=== PATIENT | female | born 2000 | race American Indian/Alaskan Native ===

== ENCOUNTER 2025-02-22 10:09 | Outpatient (AMB) | payer OTHER, SELFPAY ==
--- NOTE | 2025-02-22 10:12 | MHC.PC.OV ---
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 Allergies No Known Allergies Allergy (Verified 02/22/25 10:25) Medication List - Last Reconciled 02/22/25 by CARLEE Marquez No Known Home Meds Tobacco use date assessed: 02/22/25 Dental Screening Dental Screen Date: 02/22/25 Did you have a dental visit in the last 12 months?: Yes Did you have a dental problem in the last 6 months where you did not have access to dental care?: No Was dental information given to patient?: Patient has dentist HPI HPI Comments History of Present Illness Details 24 y/o F with dysmenorrhea, urinary incont, family hx DM s/p eye lid surgery R d/t stye Social: [employer]- works in [employer] Fhx: Mom alive, Dad unsure; 1/2 brother alive and well; Unknown paternal/maternal grandparent hx; Maternal uncle w/ DM. Health Maintenance Tdap admin today 02/22/25 Pap has never had one, referred today Specialists None History of Present Illness - The patient is a 24-year-old female presenting with the need to establish primary care & for CPE - Reports inconsistent menorrhagia, lasting up to 12 days, for years; improved however cont. has never had pap. - Longstanding urinary urgency with incont, not linked to specific beverages. - Denies chronic childhood conditions such as asthma or gastrointestinal issues. - Limited family health history known, with a maternal uncle having diabetes. - Has never undergone a Pap smear or cervical cancer screening. - has no sx. Requested STD testing Review of Systems - General: Denies chronic condition management needs - EENT: Reports prior eyelid stye, now resolved after surgery - Genitourinary: Reports urinary urgency, occasional incontinence - Gynecological: Reports menorrhagia; denies previous Pap smear - Gastrointestinal: Denies current symptoms - Family: Denial of known familial cardiac or cancer histories; maternal uncle with diabetes Physical Exam General: Well developed, well nourished, in no acute distress. Appears stated age. Head: Normocephalic, atraumatic. Eyes: Pupils are equal, round and reactive to light and accommodation. Conjunctivae are clear. Vision grossly normal. Ears: Cerumen impaction R cleared; TM intact and clear bilat Nose: Patent, without discharge. Neck: Supple, no adenopathy or thyromegaly. No pain or tenderness noted. Breast: Edu on SBE. Referral to APPLICATION TECHNICIAN for clinical breast exam. Lungs: Clear to auscultation bilaterally. No rales, rhonchi or wheeze noted. Good air flow in all overton. Heart: Regular rate and rhythm. No murmurs, click, rubs or gallops are noted. Abdomen: Bowel sounds present in all quadrants. The abdomen is soft, nontender, with no masses or organomegaly noted. No hernias are noted. : Deferred. Reviewed recommendations for routine BRIDGE ENGINEER. Referral to APPLICATION TECHNICIAN for heavy periods and Pap smear. Pulses: Peripheral pulses are equal and palpable bilaterally. Extremities: No clubbing, cyanosis nor edema is noted. Neurologic: Gait and station normal. Cranial Nerves 2-12 intact. Motor strength grossly symmetrical and intact. No sensory loss. Balance normal. Skin: No rashes, ulcers, or lesions noted. Turgor is good. Skin color is good. Hair and nails are without abnormalities. Psych: Normal eye contact, affect and mood appropriate, and normal interactions. Patient is alert and appropriate to context. Results Pending Discussion Notes I discussed with the patient the necessity of establishing care and conducting important routine health screenings. I recommended scheduling a cervical cancer screening with an APPLICATION TECHNICIAN due to the patient's age and the national guidelines. The risks and importance of a regular Pap smear in preventative health were outlined. Furthermore, although her vaccine history is unknown, I advised considering Tdap vaccination. We discussed the presence of urinary urgency since childhood and potential referrals to urology if concerned enough to explore possible treatments. To ensure comprehensive health care, I reviewed laboratory test options for STD screening and general blood work, including thyroid evaluation, anemia, and cholesterol given her variegated menstrual periods and family history of diabetes. I reiterated the importance of utilizing the patient portal for communication, lab result access, and appointments. Patient was given time to ask questions. All questions were answered to their satisfaction. Assessment and Plan 1. Establishment of Primary Care - Establish regular care coordination. 2. Menorrhagia/ Pap smear - Refer to APPLICATION TECHNICIAN and screen for anemia. 3. Urinary Urgency with incont. - urological referral 4. Screening and Preventative Health - Schedule Pap smear and STD screenings. - Tdap vaccination today - Conduct screening labs 5. Family History of Diabetes - Emphasize regular monitoring. 6. Gage lassiter, R cleared today w lavage Patient Instructions - Schedule an appointment with APPLICATION TECHNICIAN for Pap smear and gynecological health screening. - Tdap vaccine today - Follow up with recommended lab tests including STD screenings and cholesterol. - Use the patient portal for result reviews and communication. - Monitor menstrual flow and report any significant changes. - Urology referral for incont. - RTO 1 year CPE sooner as needed. Health Maintenance - Recommendations given for cervical cancer screening via Pap smear - Discussion regarding updating tetanus shot (Tdap); patient undecided - Advised to screen for sexually transmitted diseases: gonorrhea, chlamydia, and syphilis - Advised blood work, including anemia evaluation related to menorrhagia Consent Patient was informed and verbally consented to the use of an ambient scribe for clinic note documentation during this visit. An additional 30 minutes was spent addressing the problem(s) noted at [facility] visit. This includes time spent before the visit reviewing the chart, time spent during the visit, and time spent after the visit on documentation reviewing laboratory results, diagnostic imaging, medications, performing a medically necessary evaluation, counseling on diagnoses, care coordination, ordering appropriate tests, ordering appropriate medications, review of tests performed by other providers, reporting test results with the patient, communication with other healthcare providers. [facility] Medical History (Updated 02/22/25 @ 10:47 by AL Marquez-SONYA) No pertinent family history No pertinent past medical history Surgical History (Updated 02/22/25 @ 10:17 by AL Marquez-SONYA) H/O eye surgery Social History (Updated 02/22/25 @ 10:14 by Saul Huynh MA) Household Members: None Both parents involved: No Caregiver staying overnight: No Housing: Apartment Are you a primary home health care physician to a significant other at home: No Do you presently have visiting nurse or other home services: No 75 years or older and lives alone: No Alcohol intake: current Alcohol intake frequency: a few times a month Patient Tobacco Use Status: Never used Tobacco e-Cigarette/Vaping Use: Never Used Second Hand Smoke Exposure: No service: No Current occupational status: employed Current occupation: Current occupational exposures/hazards: No Cognitive needs: No Hearing needs: No Vision needs: No Questionnaire PHQ-9 Over the last 2 weeks, how often have you been bothered by any of the following problems? 1. Little interest or pleasure in doing things: not at all 2. Feeling down, depressed, or hopeless: not at all 3. Trouble falling or staying asleep, or sleeping too much: not at all 4. Feeling tired or having little energy: not at all 5. Poor appetite or overeating: not at all 6. Feeling bad about yourself - or that you are a failure or have let yourself or your family down: not at all 7. Trouble concentrating on things, such as reading the newspaper or watching television: not at all 8. Moving or speaking so slowly that other people could have noticed. Or the opposite - being so fidgety or restless that you have been moving around a lot more than usual: not at all 9. Thoughts that you would be better off or of hurting yourself in some way: not at all Total score: 0 Depression Screening Interpretation: Negative Depression Screening Done: Yes 75738 - PHQ-9 Billing: Yes Source: Developed by Drs. Milton Potter, Barbara Adame, Servando Sifuentes and colleagues, with an educational jackie from [employer]™. Thrive Questionnaire Date Thrive assessed: 02/22/25 I am a: Patient What is your living situation today?: I have a steady place to live Within the past 12 months, did the food you bought not last and you didn't have the money to get more?: Never true Within the past 12 months, did you worry whether your food would run out before you got money to buy more?: Never true Do you have trouble paying for medicines?: No Do you have trouble getting transportation to medical appointments?: No Do you have trouble paying your heating and electricity bill?: No Do you have trouble taking care of your child, family member or friend?: No Do you have trouble with day-to-day activities such as bathing, preparing meals, shopping, managing finances, etc.?: No Are you currently unemployed and looking for a job?: No Are you interested in more education?: No Please select the resources that you would like help with: None Currently or been in a relationship where the following occur: No concerns reported THRIVE Score: 0 AUDIT C Alcohol Use Questionnaire (AUDIT-C) 1. How often do you have a drink containing alcohol?: 2-3 times a week 2. How many drinks containing alcohol do you have on a typical day when you are drinking?: 1 or 2 3. How often do you have six or more drinks on one occasion?: Never Total Score: 3 Score Reviewed/Action Taken: Yes TRIP-7 AMB Questionnaire TRIP-7 Date TRIP - 7 assessed: 02/22/25 Feeling nervous, anxious, or on edge: 0 = Not at all Not being able to stop or control worryin = Not at all Worrying too much about different things: 0 = Not at all Trouble relaxin = Not at all Being so restless that it is hard to sit still: 0 = Not at all Becoming easily annoyed or irritable: 0 = Not at all Feeling afraid as if something awful might happen: 0 = Not at all Total TRIP-7 score (0-4 normal; 5-9 mild; 10-14 moderate; 15-21 severe): 0 Source: Developed by Drs. Milton Potter, Barbara Adame, Servando Sifuentes and colleagues, with an educational jackie from [employer]™. TRIP-7 Assessment Billing TRIP-7 Assessment Tool: TRIP-7 Assessment 58935 Physical exam (Primary Care) Tobacco/Smoking Status: Tobacco use Status Patient Tobacco Use Status Never used Tobacco 02/22/25 10:14 e-Cigarette/Vaping Use Never Used 02/22/25 10:14 Depression Screening Interpretation: Negative Currently or been in a relationship where the following occur: No concerns reported Office Procedures Cerumen Removal From which ear canal was the cerumen removed: right Removal: irrigation Notes: patient tolerated procedure well, no complications and ear canal clear 52263-Jau Irrigation/Lavage Coding Level of Care Code New Pt Level 3 (06743) New Pt Prev Care 18-39yr(50119 Diagnoses Encounter to establish care with new provider Z76.89 Laboratory exam ordered as part of routine general medical examination Z00.00 Mixed stress and urge urinary incontinence N39.46 Urinary Incontinence type: mixed stress and urge incontinence Dysmenorrhea N94.6 Encounter for general adult medical examination without abnormal findings Z00.00 Need for Tdap vaccination Z23 Right ear impacted cerumen H61.21 CPT Codes Office Procedure - CPT: 99357-Mhh Irrigation/Lavage ([id number]) Additional Codes TRIP-7 Assessment Billing - TRIP-7 Assessment Tool: TRIP-7 Assessment 73028 ([id number]) PHQ-9 - 51242 - PHQ-9 Billing: Yes ([id number]) Assessment & Plan Assessment & Plan (1) Encounter to establish care with new provider: Code(s): Z76.89 - Persons encountering health services in other specified circumstances (2) Laboratory exam ordered as part of routine general medical examination: Code(s): Z00.00 - Encounter for general adult medical examination without abnormal findings Category: Medical (3) Urinary incontinence: Code(s): R32 - Unspecified urinary incontinence Category: Medical Qualifiers: Urinary Incontinence type: mixed stress and urge incontinence Qualified Code(s): N39.46 - Mixed incontinence (4) Dysmenorrhea: Code(s): N94.6 - Dysmenorrhea, unspecified Category: Medical (5) Encounter for general adult medical examination without abnormal findings: Onset Date: ~02/22/25 Code(s): Z00.00 - Encounter for general adult medical examination without abnormal findings Category: Medical (6) Need for Tdap vaccination: Onset Date: ~02/22/25 Code(s): Z23 - Encounter for immunization Category: Medical (7) Right ear impacted cerumen: Code(s): H61.21 - Impacted cerumen, right ear Plan . Orders: Orders Complete Blood Count no Diff Today N94.6 - Dysmenorrhea, unspecified, R32 - Unspecified urinary incontinence, Z00.00 - Encounter for general adult medical examination without abnormal findings Comprehensive Met. Panel Today N94.6 - Dysmenorrhea, unspecified, R32 - Unspecified urinary incontinence, Z00.00 - Encounter for general adult medical examination without abnormal findings Hemoglobin A1c Today N94.6 - Dysmenorrhea, unspecified, R32 - Unspecified urinary incontinence, Z00.00 - Encounter for general adult medical examination without abnormal findings Vitamin B12 and Folate Today N94.6 - Dysmenorrhea, unspecified, R32 - Unspecified urinary incontinence, Z00.00 - Encounter for general adult medical examination without abnormal findings Vitamin D 25-OH Total Today N94.6 - Dysmenorrhea, unspecified, R32 - Unspecified urinary incontinence, Z00.00 - Encounter for general adult medical examination without abnormal findings HIV Ab/Ag Today Z11.3 - Encounter for screening for infections with a predominantly sexual mode of transmission TDaP Immunization Today Z23 - Encounter for immunization Microalbumin, Random (w Creat) Today N94.6 - Dysmenorrhea, unspecified, R32 - Unspecified urinary incontinence, Z00.00 - Encounter for general adult medical examination without abnormal findings TSH reflex Free T4 Today N94.6 - Dysmenorrhea, unspecified, R32 - Unspecified urinary incontinence, Z00.00 - Encounter for general adult medical examination without abnormal findings Syphilis Screen Today Z11.3 - Encounter for screening for infections with a predominantly sexual mode of transmission CT NG by PCR Urine Today Z11.3 - Encounter for screening for infections with a predominantly sexual mode of transmission Referrals APPLICATION TECHNICIAN Referral N94.6 - Dysmenorrhea, unspecified, Z12.4 - Encounter for screening for malignant neoplasm of cervix Urology Referral R32 - Unspecified urinary incontinence Medications: New Boostrix Tdap (diphth,pertus(acell),tetanus) 0.5 mL IM ONCE 0.5 mL 0RF NS Z23 - Encounter for immunization Patient Instructions: Patient Instructions - Schedule an appointment with APPLICATION TECHNICIAN for Pap smear and gynecological health screening. - Tdap vaccine today - Follow up with recommended lab tests including STD screenings and cholesterol. - Use the patient portal for result reviews and communication. - Monitor menstrual flow and report any significant changes. - Urology referral for incont. - RTO 1 year CPE sooner as needed. Health Maintenance - Recommendations given for cervical cancer screening via Pap smear - Discussion regarding updating tetanus shot (Tdap); patient undecided - Advised to screen for sexually transmitted diseases: gonorrhea, chlamydia, and syphilis - Advised blood work, including anemia evaluation related to menorrhagia Walk-In Care (Urgent Care): We Make it Easy Walk-in for urgent medical issues such as: ? Seasonal Allergies ? Insect Bites ? Cough ? Diarrhea ? Acute Asthma Attacks ? Back, Knee or Joint Pain ? Ear Infection ? Fever without a Rash ? Headaches ? Nausea ? [place] Eye, Rash or Skin Irritation ? Sore Throat ? Sports Physicals ? Vomiting Most insurances are accepted. Patients do not need to be part of the [facility] to seek care at the walk-in clinic. Locations [address] [facility] [place] [address] ? [phone] [facility] Walk-In Care in [place] provides services to ages 18 and over. Open Tuesday-Tuesday: 7 a.m. to 5 p.m. and Tuesday: 9 a.m. to 3 p.m.* *Hours may vary due to staffing availability. To confirm Walk-In Care hours in [place], please call [phone]. [address] [place] [address] ? [phone] [facility] Walk-In Care in [place] provides services to ages 12 and over. Open Tuesday-Tuesday: 8 a.m. to 5 p.m. Hours may vary due to staffing availability. To confirm Walk-In Care hours in [place], please call [phone]. LABORATORY SERVICES: [facility] Lab ? Primary Location [address] [place] [address] Tuesday through Tuesday 6:00 AM ? 5:00 PM Tuesday 7:00 AM ? 11:00 AM* [phone] The [facility] Lab is centrally located near the front entrance of the [facility] for easy outpatient access. Convenient parking is provided for outpatients. *Hours may vary due to staffing availability. To confirm Laboratory hours for any location, please call [phone]. Offsite Location For your convenience, we offer offsite laboratory draw stations at the following locations: [address] [place] [address] ? [facility] [address], [address] Tuesday through Tuesday 7:30 AM ? 1:00 PM* [phone] *Hours may vary due to staffing availability. To confirm Laboratory hours for any location, please call [phone]. [place] ? [address] Tuesday through Tuesday 6:00 AM ? 3:30 PM* Tuesday 6:30 AM ? 3 PM* [phone] *Hours may vary due to staffing availability. To confirm Laboratory hours for any location, please call [phone]. [address] [facility] Tuesday through Tuesday 7:30 AM ? 4:00 PM* [phone] *Hours may vary due to staffing availability. To confirm Laboratory hours for any location, please call [phone]. [address] [facility] Tuesday through 9:00 AM ? 4:00 PM* *Hours may vary due to staffing availability. To confirm Laboratory hours for any location, please call [phone]. Appointments are not necessary. Walk-ins are welcome. Like all the departments throughout the [facility], our Lab undergoes frequent reviews to ensure the quality and accuracy of test results, and our staff takes special pride in its status as a nationally accredited facility. Patient Portal: [facility] ONE PATIENT. ONE RECORD. BETTER CARE. [facility] has a fully integrated, cutting-edge mobile electronic health information system that has revolutionized the way we care for our patients and manage our organization. This system improves communication and coordination enabling us to provide safe, higher-quality care, and an overall positive experience for staff and patients. Our first priority, as always, is to deliver the highest quality care possible. The system is running in the background supporting that priority. This portal is for all [facility] services and practices. If you are experiencing any technical difficulties with enrolling or logging into the Patient Portal please complete the [facility] Patient Portal Technical Support Form. [facility] now offers a new secure on-line interactive tool for patients to review their health information ? ?Patient Portal. This interactive web portal will enable patients and their families to take an active role in their care by providing easy, secure access to their health information via the internet. The Patient Portal provides patients with instant access to their health information, including laboratory results, medications, allergies, demographic information, visit history, and more. In addition to managing their own care, parents and health care proxies with authorized consent will appreciate the ability to access the records of those individuals for whom they provide care. Please note: if you wish to gain access (Proxy) to another patient?s portal, you will be required to come to the Medical Records Department in person at [facility]. Both the patient giving proxy access and the proxy will need to provide photo identification and complete the appropriate authorization. The Patient Portal also allows track their appointments online. The [facility] Patient Portal also saves patients time by allowing them to submit updates to their demographic and contact information prior to their visits. Portal email notifications will also alert patients to any new activity on their portal, such as test results and new appointments. In order to initially enroll in the [facility] Patient Portal, you will need to enter some required information including the following: your [facility] Medical Record number your personal home email address name date of Please note: In order to enroll in the [facility] Patient Portal, we need to have your email address on file in your electronic medical record. ?The email address needs to be specific for one person (yourself) in order for your Portal enrollment to be successful. ?You can update your email address in person with our Registration staff when you are registering for a hospital visit. ?Otherwise, you will need to come to the Health Information Management (Medical Records) Department at [facility]. ?We are open from Tuesday ? Tuesday from 7:30 a.m. ? 4:30 p.m. ?You will be required to present a photo id. Once you have successfully enrolled in the Patient Portal, you will receive a one-time user id and password for the Portal, sent to your email address. ?This will allow you to log into the Patient Portal within 99 hrs and reset your own logon id and password, and define personal security questions. ?Once your permanent login and password have been set, you can log into the [facility] Patient Portal at any time via the blue button above or from the Portal Logon button on any page of the [facility] website. [facility] encourage all of our patients to enroll in Patient Portal as it presents a valuable opportunity for patients and their families to actively participate in their care and stay healthy Welcome to [facility]. ?We look forward to working with you. Health screenings for women You should visit your health care provider from time to time, even if you are healthy. The purpose of these visits is to: Screen for medical issues Assess your risk for future medical problems Encourage a healthy lifestyle Update vaccinations and other preventive care services Help you get to know your provider in case of an illness Information Even if you feel fine, you should still see your provider for regular checkups. These visits can help you avoid problems in the future. For example, the only way to find out if you have high blood pressure is to have it checked regularly. High blood sugar and high cholesterol levels also may not have any symptoms in the early stages. A simple blood test can check for these conditions. There are specific times when you should see your provider or receive specific health screenings. The [place] Preventive Services Task Force publishes a list of recommended screenings. Below are screening guidelines for women ages 18 to 39. BLOOD PRESSURE SCREENING Your blood pressure should be checked at least once every 3 to 5 years if: Your blood pressure is in the normal range (top number less than 120 mm Hg and bottom number less than 80 mm Hg) You don't have risk factors for high blood pressure Ask your provider if you need your blood pressure checked more often if: The top number is 120 to 129 mm Hg or the bottom number is 70 to 79 mm Hg You have diabetes, heart disease, kidney problems, are overweight, or have certain other health conditions You have a first-degree relative with high blood pressure You are Black You had high blood pressure during a If the top number is 130 mm Hg or greater or the bottom number is 80 mm Hg or greater, this is considered stage 1 hypertension. Schedule an appointment with your provider to learn how you can reduce your blood pressure. Watch for blood pressure screenings in your area. Ask your provider if you can stop in to have your blood pressure checked. BREAST CANCER SCREENING Experts do not agree about the benefits of breast self-exams in finding breast cancer or saving lives. Talk to your provider about what is best for you. A screening mammogram is not recommended for most women under age 40. Your provider may discuss and recommend mammograms, MRI scans, or ultrasounds if you have an increased risk for breast cancer, such as: A mother or sister who had breast cancer at a young age (most often starting screening earlier than the age the close relative was diagnosed) You carry a high-risk genetic marker CERVICAL CANCER SCREENING Cervical cancer screening should start at age 21 years unless your provider advises otherwise. After the first test: Women ages 21 through 29 should have a Pap test every 3 years. Exoprts do not agree on whether HPV testing is recommended for this age group. Women ages 30 through 65 should be screened with either a Pap test every 3 years or the HPV test every 5 years or both tests every 5 years (called cotesting ). Women who have been treated for precancer (cervical dysplasia) should continue to have Pap tests for 20 years after treatment or until age 65, whichever is longer. If you have had your uterus and cervix removed (total hysterectomy), and you have not been diagnosed with cervical cancer or precancer (high grade cervical neoplasia), you do not need cervical cancer screening. CHOLESTEROL SCREENING Cholesterol screening should begin at: Age 45 for women with no known risk factors for coronary heart disease Age 20 for women with known risk factors for coronary heart disease Repeat cholesterol screening should take place: Every 5 years for women with normal cholesterol levels More often if changes occur in lifestyle (including weight gain and diet) More often if you have diabetes, heart disease, kidney problems, or certain other conditions DIABETES SCREENING You should be screened for diabetes starting at age 35 and then repeated every 3 years if you have no risk factors for diabetes. Screening may need to start earlier and be repeated more often if you have other risk factors for diabetes, such as: You have a first degree relative with diabetes. You are overweight or have obesity. You have high blood pressure, prediabetes, or a history of heart disease. Screening for diabetes should be done if you are planning to become and you are overweight and have other risk factors such as high blood pressure. DENTAL EXAM Go to the dentist once or twice every year for an exam and cleaning. Your dentist will evaluate if you need more frequent visits. EYE EXAM Have an eye exam every 5 to 10 years before age 40. If you have vision problems, have an eye exam every 2 years or more often if recommended by your provider. You should have an eye exam that includes an examination of your retina (back of your eye) at least every year if you have diabetes. IMMUNIZATIONS Commonly needed vaccines include: Flu shot: get one every year. COVID-19 vaccine: ask your provider what is best for you. Tetanus-diphtheria and acellular pertussis (Tdap) vaccine: have one at or after age 19 as one of your tetanus-diphtheria vaccines if you did not receive it as an adolescent. Tetanus-diphtheria: have a booster (or Tdap) every 10 years. Varicella vaccine: receive 2 doses if you never had chickenpox or the varicella vaccine. Hepatitis B vaccine: receive 2, 3, or 4 doses, depending on your exact circumstances. Measles, mumps, and rubella (MMR) vaccine: receive 1 to 2 doses if you are not already immune to MMR. Your provider can tell you if you are immune. Ask your provider about the human papillomavirus (HPV) vaccine if: You have not received the HPV vaccine in the past You have not completed the full vaccine series (you should catch up on this shot) Ask your provider if you should receive other immunizations if you have certain health problems that increase your risk for some diseases such as pneumonia. INFECTIOUS DISEASE SCREENING Women who are sexually active should be screened for chlamydia and gonorrhea up until age 25. Women 25 years and older should be screened for chlamydia and gonorrhea if at high risk. Screening for hepatitis C: All adults ages 18 to 79 should get a one-time test for hepatitis C. people should be screened at every . Screening for human immunodeficiency virus (HIV): All people ages 15 to 65 should get a one-time test for HIV. Depending on your lifestyle and medical history, you may also need to be screened for infections such as syphilis and HIV, as well as other infections. PHYSICAL EXAM All adults should visit their provider from time to time, even if they are healthy. The purpose of these visits is to: Screen for disease Assess your risk of future medical problems Encourage a healthy lifestyle Update your vaccinations and other preventive care services Maintain a relationship with a provider in case of an illness Your height, weight, and BMI should be checked at every exam. During your exam, your provider may ask you about: Depression and anxiety Diet and exercise Alcohol and tobacco use Safety issues, such as using seat belts, smoke detectors, and intimate partner violence Your medicines and risk for interactions SKIN SELF-EXAM Your provider may check your skin for signs of skin cancer, especially if you're at high risk, such as if you: Have had skin cancer before Have close relatives with skin cancer Have a weakened immune system OTHER SCREENING Talk with your provider about colon cancer screening if you have a strong family history of colon cancer or polyps, or if you have had inflammatory bowel disease or polyps yourself. Routine bone density screening of women under 40 is not recommended.
[2025-02-22 10:19] VITALS: BP 118/68; PULSE 72; RESP 12; TEMP 36.2; O2SAT 98; BMI 26.9
== END 2025-02-22 10:57 | disposition home or self-care (01) ==
LOC: HO.HMCFM 10:10
PROVIDERS: PCP Nurse Practitioner Family; Visit Provider Nurse Practitioner Family
DX: Z00.00 Encounter for general adult medical examination without abnormal findings (principal); N39.46 Mixed incontinence; N94.6 Dysmenorrhea, unspecified; H61.21 Impacted cerumen, right ear; Z76.89 Persons encountering health services in other specified circumstances; Z23 Encounter for immunization

== ENCOUNTER → 2025-02-22 10:09 | Outpatient (BNVA) | payer OTHER, SELFPAY | PROVIDERS: PCP Nurse Practitioner Family; Visit Provider Nurse Practitioner Family | DX: Z00.00 Encounter for general adult medical examination without abnormal findings (principal); N92.1 Excessive and frequent menstruation with irregular cycle; H61.21 Impacted cerumen, right ear; N39.46 Mixed incontinence; N94.6 Dysmenorrhea, unspecified; Z23 Encounter for immunization; Z76.89 Persons encountering health services in other specified circumstances | CPT/HCPCS: 69209; 90471; 90715; 96127; 99202 ==

== ENCOUNTER 2025-04-25 08:47 | Outpatient (REF) | payer OTHER, SELFPAY | END 2025-04-25 08:48 | disposition home or self-care (01) | LOC: HO.LAB 08:47 | PROVIDERS: PCP Nurse Practitioner Family; Visit Provider Nurse Practitioner Family | DX: N39.46 Mixed incontinence (principal); R35.0 Frequency of micturition; N39.0 Urinary tract infection, site not specified | CPT/HCPCS: 51798; 81003; 87086; 87088; 87186; 99202 ==

== ENCOUNTER 2025-04-25 08:47 | Outpatient (AMB) | payer OTHER, SELFPAY ==
--- NOTE | 2025-04-25 08:51 | A.OFFVIS_ITS ---
Intake Visit Reasons: urinary incontinence Intake Note: Patient is present for urinary incontinence Urology Medication:NONE Antibiotic Allergy:NONE Blood Thinner:NONE TODAY'S PVR:0ML'S Search Marketing Specialist Required: No Allergies No Known Allergies Allergy (Verified 04/25/25 08:52) HPI Comments Details: Braden is a very pleasant 24-year-old female patient of Dr. Maxwell. She presents to the office today as a new patient for ongoing lower urinary tract symptoms she has been experiencing. In discussion with the patient today she reports for many years she feels she has had a very small bladder in his unable to drink much without needing to go to the bathroom. She discusses even being told by her mom that she has been like this her whole life. She reports now she is in the and feels at times she has limited access to the bathroom in his been having episodes of urge incontinence. In office urinalysis results reviewed with the patient today positive nitrates. We did discussed potential for urinary tract infection. She is sexually active. She reports having followed up with her PCP 2 months ago in his planning to undergo STD workup. In review of patient's chart it does appear these orders have been placed. Patient discusses she has been unable to make it to the lab with her busy work schedule. She reports episodes of urinary urgency, urinary frequency, nocturia up to 2 times per night, and urge incontinence. She denies hematuria, dysuria, foul smelling urine, changes to urinary stream, flank pain, fever, and or chills. PVR 0 mL. We did discuss potential causes of lower urinary tract symptoms patient is experiencing as well as further treatment options and risks and benefits of these treatment options. We discussed the importance of practicing safe sex. All questions were answered. She otherwise offers no other issues or concerns at this time. [facility] Medical History (Updated 04/25/25 @ 09:46 [facility] No pertinent past medical history No pertinent family history Surgical History (Updated 02/22/25 @ 10:17 by Anna Maxwell [facility]) H/O eye surgery Social History (Updated 02/22/25 @ 10:21 by Saul Huynh MA) Household Members: None Both parents involved: No Caregiver staying overnight: No Housing: Apartment Are you a primary child adolescent care to a significant other at home: No Do you presently have visiting nurse or other home services: No 75 years or older and lives alone: No Alcohol intake: current Alcohol intake frequency: a few times a month Patient Tobacco Use Status: Never used Tobacco e-Cigarette/Vaping Use: Never Used Second Hand Smoke Exposure: No service: No Current occupational status: employed Current occupation: Current occupational exposures/hazards: No Cognitive needs: No Hearing needs: No Vision needs: No Review of Systems Const All systems reviewed & are unremarkable except as noted in HPI and below Physical Exam Const General: cooperative, healthy appearing, comfortable, no acute distress, well developed, alert and awake Orientation/consciousness: patient oriented x3 Limitations: no limitations HEENT Head: Yes normal to inspection, Yes normocephalic and Yes atraumatic Ears: hearing grossly normal bilaterally Eyes General: appearance normal, both eyes and all related structures Neck Neck: Yes normal visual inspection and Yes trachea midline Chest Chest palpation & inspection: normal inspection of the chest Resp Effort & Inspection: normal respiratory effort and able to speak in complete sentences Cardio Rate: regular rate GI Inspection: Yes normal to inspection General: Yes no CVA tenderness Back/Spine/Pelvis Back: no CVA tenderness Skin General skin exam: no rashes or lesions noted Neuro General: patient oriented x3 Extrem General: Yes normal to inspection Psych Appearance: grossly normal and well kempt Mental Status: mental status grossly normal Speech and movement: Normal speech and movement present and Clear speech present Affect: normal affect Attitude: cooperative Thought process: Normal thought process present Thought content: Normal thought content present Insight: Fair insight present (Psych) Judgement: Fair judgement present (Psych) Office Procedures Post Void Residual Post Residual Void Post Void Residual (PVR): 0 [id number] Void Residual by ultrasound Results AMB Urinalysis, Automated UA Leukoctes 0 Eliseo/uL Last Edit by FIDELIA Jennings on 04/25/25 09:11 UA Nitrite Positive Last Edit by FIDELIA Jennings on 04/25/25 09:16 UA Nitrite previously reported as Negative Jonathan Negron 04/25/25 09:16 UA Urobilinogen 0.2 mg/dL Last Edit by FIDELIA Jennings on 04/25/25 09:1 1 UA Protein 15 mg/dL Last Edit by FIDELIA Jennings on 04/25/25 09:11 UA pH 6.0 Last Edit by Jonathan Negron [facility] on 04/25/25 09:11 UA Blood 0 Bayron/uL Last Edit by FIDELIA Jennings on 04/25/25 09:11 UA Specific [place] 1.025 Last Edit by Jonathan Negron [facility] on 04/25/25 09: 11 UA Ketone Negative Last Edit by Jonathan Negron [facility] on 04/25/25 09:11 UA Bilirubin 0 mg/dL Last Edit by Jonathan Negron [facility] on 04/25/25 09:11 UA Glucose 0 mg/dL Last Edit by Jonathan Negron [facility] on 04/25/25 09:11 Results Reviewed Results Reviewed: Laboratory Last Values Urine pH (Auto) 6.0 04/25/25 09:10 Specific [place] (Auto) 1.025 04/25/25 09:10 Urine Protein (Auto) 15 mg/dL 04/25/25 09:10 Glucose (UA)(Auto) 0 mg/dL 04/25/25 09:10 Urine Ketones (Auto) Negative 04/25/25 09:10 Urine Blood (Auto) 0 Bayron/uL 04/25/25 09:10 Urine Nitrite (Auto) Positive 04/25/25 09:10 Urine Bilirubin (Auto) 0 mg/dL 04/25/25 09:10 Urine Urobilinogen (Auto) 0.2 mg/dL 04/25/25 09:10 Leukocyte Esterase (Auto) 0 Eliseo/uL 04/25/25 09:10 Assessment & Plan Assessment & Plan (1) Urinary incontinence: Code(s): R32 - Unspecified urinary incontinence Category: Medical Qualifiers: Urinary Incontinence type: mixed stress and urge incontinence Qualified Code(s): N39.46 - Mixed incontinence (2) Urinary frequency: Code(s): R35.0 - Frequency of micturition Category: Medical (3) Urinary urgency: Code(s): R39.15 - Urgency of urination Category: Medical (4) Urinary tract infection: Code(s): N39.0 - Urinary tract infection, site not specified Category: Medical Plan In office urinalysis results with the patient today; as noted above; will send for urine culture. PVR 0 mL. Will obtain retroperitoneal ultrasound for further assessment evaluation. Start Bactrim as discussed and prescribed. Prescription provided for fluconazole as she reports she typically gets yeast infections with antibiotic therapy. We did discussed potential causes of lower urinary tract symptoms as well as further treatment options and risks and benefits of these treatment options. We did discussed potential near future in office cystoscopy and or urodynamics for further assessment evaluation. Discussed UTI prevention with D mannose supplement, vitamin-C, increasing fluid intake, behavioral therapy with timed voiding, perineal hygiene and postcoital voiding, and management of constipation with stool softeners and increased fiber intake. Follow-up in 1-3 months with imaging and PVR; or sooner with any issues, concerns, and or questions. Orders: Orders AMB Urinalysis Automated Today Z13.9 - Encounter for screening, unspecified US retroperitoneal comp Today N39.0 - Urinary tract infection, site not specified, N39.46 - Mixed incontinence, R35.0 - Frequency of micturition, R39.15 - Urgency of urination Urine Culture Today N39.0 - Urinary tract infection, site not specified Medications: New sulfamethoxazole-trimethoprim 800-160 mg (Bactrim DS) 1 tab PO BID 14 tabs 0RF 7 days N39.0 - Urinary tract infection, site not specified fluconazole 150 mg PO Q3D 2 tabs 0RF 2 doses B49 - Unspecified mycosis Patient Instructions: The patient had an opportunity to ask questions regarding the treatment plan. All questions were answered. Physical exam, labs, and imaging were discussed and reviewed in detail. As well as risks, benefits, and discussion of treatment choices. No major barriers to understanding were identified. The patient expressed understanding and agreement with the above treatment plan. The patient was made aware they should contact our office by phone for worsening of their current condition, the appearance of new symptoms, or with any questions or concerns. Compliance is encouraged with any medications and follow up testing that is ordered. It is a privilege to be allowed the opportunity to participate in? your urological care.? Again, if you have any questions or concerns If you have any questions or concerns please do not hesitate to contact me. The office is [phone]. This note is constructed using voice recognition software. While every effort has been made to ensure accuracy ticket writer errors may have been included. Yours sincerely, Kiki Harrison, MANAGER [employer] Coding Level of Care Code New Pt Level 4 (08240) Diagnoses Mixed stress and urge urinary incontinence N39.46 Urinary Incontinence type: mixed stress and urge incontinence Urinary frequency R35.0 Urinary urgency R39.15 Urinary tract infection N39.0 CPT Codes Post Residual Void - PVR CPT Code: 65929-Kvgh Void Residual by ultrasound ([id number])
== END 2025-04-25 09:39 | disposition home or self-care (01) ==
LOC: HO.HUSH 08:48
PROVIDERS: PCP Nurse Practitioner Family; Visit Provider Nurse Practitioner Family
DX: N39.46 Mixed incontinence (principal); R35.0 Frequency of micturition; R39.15 Urgency of urination; N39.0 Urinary tract infection, site not specified; Z13.9 Encounter for screening, unspecified
CPT/HCPCS: 99204

== ENCOUNTER 2025-04-27 12:07 | Outpatient (REF) | payer OTHER, SELFPAY ==
--- OUTSIDE RECORDS SUMMARY | 2012-01-25 08:07 | XMS_ITS | Continuity of Care Document ---
Author Organization [facility] Address [address] [place] [address] Phone Care Team Providers Care Shuttle Final Inspector Name Role Phone Brian Kellogg MD Unavailable Unavailable Procedures Procedure Date OFFICE CONSULTATION OFFICE/OUTPATIENT VISIT, EST OFFICE/OUTPATIENT VISIT, EST OFFICE/OUTPATIENT VISIT, EST Advance Directives Directive Yes / No Effective Date File Name No Information Encounters Encounter Description Practice Location Reason(s) For Visit Diagnoses Date Provider Providers Copied on Encounter [facility], [address] [place], [id number], [place] tel: [phone] [facility] No Information 7 2 Valdez Torres. [address] [place], [id number] , [place]. tel: [phone] Referring Provider: [place], [address]. tel: [phone] OFFICE CONSULTATION [facility], [address] [place], [id number], [place] tel: [phone] [facility] No Information 201 2 Valdez Torres. [address] [place], [id number] , [place]. tel: [phone] Referring Provider: [address] [facility], [place], [address]. tel: [phone] OFFICE/OUTPATI ENT VISIT, [facility], [address] [place], [id number], [place] tel: [phone] [facility] No Information 1 Valdez Torres. [address] [place], [id number] , [place]. tel: [phone] Referring Provider: Damion Jauregui, [facility] [place] [place], . tel: [phone] OFFICE/OUTPATI ENT VISIT, [facility], [address] [place], [id number], [place] tel: [phone] [facility], [facility]ated Within [facility] No Information 1 Valdez Torres. [address] [place], [id number] , [place]. tel: [phone] Referring Provider: Damion Jauregui [facility] [address] [place], [place] [address], . tel: [phone] OFFICE/OUTPATI ENT VISIT, [facility], [address] [place], [id number], [place] tel: [phone] [facility] No Information 1 Valdez Torres. [address] [place], [id number] , [place]. tel: [phone] Referring Provider: Damion Jauregui [facility] [address] [place], [place] [address], . tel: [phone] Family History Family Member Type Diagnosis Age At Onset No Information Payers Payer name Insurance type Covered constitution party ID Authoriza tion(s) [employer] [id number] Social History Type Description Quantity Date Captured Comments Sex Female Smoking Status No Information Chief Complaint And Reason For Visit No Information Reason For Referral Reason For Referral No Information History Of Present Illness Encounter Date Complaint History Of Prese nt Illness No Information Functional Status Date Functional Assessmen t No Information Instructions Date Instruction Additional Infor mation No Information Assessments Type Assessment Date No Information Patient Care Teams Name Effective Dates (start - stop) Status Members No Information
[2025-04-27 13:42] LABS: Hematocrit 36.9 % (37.0-47.0); Hemoglobin 12.0 g/dl (12.0-16.0); Mean Corpuscular HGB Conc 32.5 g/dl (31.0-35.0); Mean Corpuscular Hemoglobin 30.4 pg (27.0-33.0); Mean Corpuscular Volume 93.4 fL (80.0-98.0); NRBC Abs Auto 0.000 X10*3/uL (0.0-0.012); NRBC Pct Auto 0.0 /100WBC (0.0-0.2); Platelet Count 226 X10*3/uL (160-400); Red Blood Count 3.95 X10*6/uL (4.20-5.50); White Blood Count 7.5 X10*3/uL (4.8-10.8)
[2025-04-27 14:01] LABS: Alanine Aminotransferase 20 U/L (0-31); Albumin Level 4.4 g/dL (3.5-5.0); Alkaline Phosphatase 61 U/L (39-117); Anion Gap 13 (12-20); Aspartate Amino Transferase 24 U/L (5-31); Blood Urea Nitrogen 16 mg/dL (9-16); Calcium 9.5 mg/dL (8.4-10.2); Carbon Dioxide 24 mmol/L (22-29); Chloride 106 mmol/L (96-108); Estimated Glomerular Filt Rate > 60; Potassium 3.6 mmol/L (3.3-5.1); Sodium 139 mmol/L (135-145); Total Protein 7.6 g/dL (6.5-8.0)
[2025-04-27 14:35] LABS: Folate 8.9 ng/mL (> or = 4.0); Vitamin B12 407 pg/mL (200-900)
[2025-04-27 15:18] LABS: CT PCR Urine NOT DETECTED (Not Detect.); NG PCR Urine NOT DETECTED (Not Detect.)
[2025-04-28 03:54] LABS: Syphilis Screen Nonreactive (Nonreactive)
[2025-04-28 04:35] LABS: HIV Num 1 0.07 S/CO (0.00-0.99)
== END 2025-04-27 12:08 | disposition home or self-care (01) ==
LOC: HO.HMGCLDS 12:07
PROVIDERS: PCP Nurse Practitioner Family; Visit Provider Nurse Practitioner Family
DX: Z00.00 Encounter for general adult medical examination without abnormal findings (principal); Z13.1 Encounter for screening for diabetes mellitus; Z13.21 Encounter for screening for nutritional disorder; Z20.2 Contact with and (suspected) exposure to infections with a predominantly sexual mode of transmission; R32 Unspecified urinary incontinence; N94.6 Dysmenorrhea, unspecified
CPT/HCPCS: 80053; 82043; 82306; 82570; 82607; 82746; 83036; 84443; 85027; 86780; 87389; 87491; 87591